=== PATIENT | female | born 1935 | race Two or more races ===

== ENCOUNTER 2018-02-24 11:18 | Inpatient (IN) | payer MEDICARE, OTHER ==
[~2018-02-24] VITALS: Ht 144.8 cm; Wt 54.9 kg
[2018-02-24 11:30] VITALS: BP 144/63
[2018-02-24] MEDS ORDERED: Vancomycin 1 GM in NS 275 ML IV ONE (11:30)
[2018-02-24] MEDS: Cefepime HCl 1 GM in NS 55 ML IV SCH ×2 (12:33→23:30)
[2018-02-24 12:59] LABS: ANION GAP 10 mmol/L (5-15); BLOOD UREA NITROGEN 46 mg/dL (7-18); CALCIUM 8.9 MG/DL (8.5-10.1); CARBON DIOXIDE 29 MMOL/L (21-32); CHLORIDE 95 MMOL/L (98-107); CREATININE 4.9 MG/DL (0.55-1.30); POTASSIUM 4.8 MMOL/L (3.5-5.1); SODIUM 134 MMOL/L (136-145)
[2018-02-24 13:02] LABS: BASOPHILS % (AUTO) 1.4 % (0.0-2.0); EOSINOPHILS % (AUTO) 0.7 % (0.0-3.0); HEMATOCRIT 33.4 % (37.0-47.0); LYMPHOCYTES % (AUTO) 17.7 % (20.0-45.0); MEAN CORPUSCULAR VOLUME 97 FL (80-99); NEUTROPHILS % (AUTO) 69.1 % (45.0-75.0); PLATELET COUNT 139 K/UL (150-450); RED BLOOD COUNT 3.43 M/UL (4.20-5.40); RED CELL DISTRIBUTION WIDTH 12.3 % (11.6-14.8)
[2018-02-24 13:11] LABS: ALANINE AMINOTRANSFERASE 22 U/L (12-78); ALBUMIN 3.5 G/DL (3.4-5.0); ALBUMIN/GLOBULIN RATIO 0.9 (1.0-2.7); ALKALINE PHOSPHATASE 103 U/L (46-116); ASPARTATE AMINO TRANSFERASE 34 U/L (15-37); BILIRUBIN,TOTAL 0.5 MG/DL (0.2-1.0); CKMB 1.3 NG/ML (0.0-3.6); CREATINE KINASE 337 U/L (26-308)
--- NOTE | 2018-02-24 13:19 | Emergency Room Report ---
History of Present Illness General Chief Complaint: Upper Respiratory Illness Source: Patient Present Illness HPI This patient complains of cough and congestion for the past 2 days. She states that yesterday she had a fever with shaking chills. She has had sputum production that is white in color. She denies abdominal pain. She has a history of end-stage renal disease and underwent dialysis yesterday. She denies shortness of breath. She has no other complaints. Allergies: Coded Allergies: No Known Allergies (Unverified , 02/24/18) Patient History Past Medical History: see triage record, DM, renal disease, dialysis Social History: Denies: smoking, alcohol use, drug use Reviewed Nursing Documentation: PMH: Agreed; PSxH: Agreed Nursing Documentation-PMH Past Medical History: No History, Except For Hx Cardiac Problems: Yes Hx Hypertension: No Hx Pacemaker: No Hx Asthma: No Hx COPD: No Hx Diabetes: Yes Hx Cancer: No Hx Gastrointestinal Problems: No Hx Dialysis: Yes - T, TH, Sat History Of Psychiatric Problem: No Hx Neurological Problems: No Hx Cerebrovascular Accident: No Hx Seizures: No Review of Systems All Other Systems: negative except mentioned in HPI Physical Exam Vital Signs Date Time Temp Pulse Resp B/P (MAP) Pulse Ox O2 Delivery O2 Flow Rate FiO2 02/24/18 11:23 98.7 69 16 144/63 88 Room Air 98.8 Sp02 EP Interpretation: reviewed, normal General Appearance: no apparent distress, alert, GCS 15, non-toxic Head: normocephalic, atraumatic Eyes: bilateral eye normal inspection, bilateral eye PERRL ENT: hearing grossly normal, normal pharynx, no angioedema, normal voice Neck: full range of motion, supple/symm/no masses Respiratory: chest non-tender, lungs clear, normal breath sounds, no respiratory distress, no retraction, no accessory muscle use, speaking full sentences Cardiovascular #1: regular rate, rhythm, no edema Gastrointestinal: normal bowel sounds, non tender, soft, non-distended, no guarding, no rebound Rectal: deferred Musculoskeletal: back normal, gait/station normal, normal range of motion, non- tender Neurologic: alert, oriented x3, responsive, motor strength/tone normal, sensory intact, speech normal Psychiatric: judgement/insight normal, memory normal, mood/affect normal, no suicidal/homicidal ideation Skin: normal color, no rash, warm/dry, well hydrated Medical Decision Making Diagnostic Impression: Primary Impression: Pneumonia ER Course This patient has pneumonia. She is well appearing overall without respiratory distress. However, the patient is 82 years old and has diabetes and end-stage renal disease. I felt this patient should be admitted overnight for close monitoring and IV antibiotics. She is admitted to the medical surgical floor. Laboratory Tests Test 02/24/18 12:10 White Blood Count 5.0 K/UL (4.8-10.8) Red Blood Count 3.43 M/UL (4.20-5.40) L Hemoglobin 11.0 G/DL (12.0-16.0) L Hematocrit 33.4 % (37.0-47.0) L Mean Corpuscular Volume 97 FL (80-99) Mean Corpuscular Hemoglobin 32.1 PG (27.0-31.0) H Mean Corpuscular Hemoglobin Concent 33.1 G/DL (32.0-36.0) Red Cell Distribution Width 12.3 % (11.6-14.8) Platelet Count 139 K/UL (150-450) L Mean Platelet Volume 8.4 FL (6.5-10.1) Neutrophils (%) (Auto) 69.1 % (45.0-75.0) Lymphocytes (%) (Auto) 17.7 % (20.0-45.0) L Monocytes (%) (Auto) 11.0 % (1.0-10.0) H Eosinophils (%) (Auto) 0.7 % (0.0-3.0) Basophils (%) (Auto) 1.4 % (0.0-2.0) Sodium Level 134 MMOL/L (136-145) L Potassium Level 4.8 MMOL/L (3.5-5.1) Chloride Level 95 MMOL/L (98-107) L Carbon Dioxide Level 29 MMOL/L (21-32) Anion Gap 10 mmol/L (5-15) Blood Urea Nitrogen 46 mg/dL (7-18) H Creatinine 4.9 MG/DL (0.55-1.30) H Estimate Glomerular Filtration Rate mL/min (>60) Glucose Level 262 MG/DL (74-106) H Lactic Acid Level 1.60 mmol/L (0.66-2.22) Calcium Level 8.9 MG/DL (8.5-10.1) Total Bilirubin 0.5 MG/DL (0.2-1.0) Aspartate Amino Transferase (AST) 34 U/L (15-37) Alanine Aminotransferase (ALT) 22 U/L (12-78) Alkaline Phosphatase 103 U/L (46-116) Total Creatine Kinase 337 U/L (26-308) H Creatine Kinase MB 1.3 NG/ML (0.0-3.6) Creatine Kinase MB Relative Index 0.3 Troponin I 0.026 ng/mL (0.000-0.056) Total Protein 7.4 G/DL (6.4-8.2) Albumin 3.5 G/DL (3.4-5.0) Globulin 3.9 g/dL Albumin/Globulin Ratio 0.9 (1.0-2.7) L EKG Diagnostic Results Rate: normal Rhythm: NSR ST Segments: no acute changes Rhythm Strip Diag. Results EP Interpretation: yes Rate: 60's Rhythm: NSR, no PVC's, no ectopy Last Vital Signs Date Time Temp Pulse Resp B/P (MAP) Pulse Ox O2 Delivery O2 Flow Rate FiO2 02/24/18 11:30 98.8 86 16 144/63 88 Room Air 98.8 Disposition: ADMITTED INPATIENT Condition: Stable Referrals: Servando Ortiz MD (PCP) JEANNIE ARAGON D.O. February 24, 2018 13:19
[2018-02-24] MEDS ORDERED: AMLODIPINE BESY10 MG ORAL (13:30)
[2018-02-24] MEDS ORDERED: LEVOTHYROXINE75 MCG ORAL (13:30)
[2018-02-24] MEDS ORDERED: cefTRIAXone 1 GM in NS 55 ML IVPB ONE (13:30)
[2018-02-24] MEDS ORDERED: BYSTOLIC2.5 MG ORAL (13:30)
[2018-02-24] MEDS ORDERED: FAMOTIDINE20 MG ORAL (13:30)
[2018-02-24] MEDS ORDERED: PLAVIX75 MG ORAL (13:35)
[2018-02-24] MEDS ORDERED: [UNRECOGNIZED DRUG - OTHER] ORAL (13:35)
[2018-02-24] MEDS ORDERED: FUROSEMIDE40 MG ORAL (13:35)
[2018-02-24] MEDS ORDERED: ZOCOR20 MG ORAL (13:35)
[2018-02-24] MEDS ORDERED: STARLIX60 MG ORAL (13:35)
[2018-02-24] MEDS ORDERED: AURYXIA210 MG PO (13:35)
[2018-02-24] MEDS ORDERED: LEVEMIR100 UNIT/1 SUBQ (13:35)
[2018-02-24 14:55] VITALS: BP 135/74
--- NOTE | 2018-02-24 15:51 | Diagnostic Imaging Report ---
Indication: Cough Technique: One view of the chest Comparison: none Findings: The lungs and pleural spaces are clear. Heart size is normal Impression: Negative
[2018-02-24] MEDS ORDERED: Ferric Subsulfate (Monsel's Soln) 30ml TOPIC ONE (16:15)
[2018-02-24] MEDS ORDERED: Heparin Sod 1000 units/ml 10ml IV PRN (17:00)
[2018-02-24] MEDS ORDERED: Azithromycin 250mg tab ORAL ONE (18:00)
[2018-02-24 20:00] VITALS: BP 127/54
[2018-02-24] MEDS: NovoLOG Insulin Flexpen SUBQ SCH (21:30)
[2018-02-24] MEDS: Albuterol/Ipratropium 3ml neb HHN SCH (22:30)
[2018-02-25] VITALS: BP_SYST 123; BP_SYST 132; BP_DIAS 51; BP_DIAS 71
[2018-02-25] MEDS: Guaifenesin/DM 10ml syrup ORAL PRN (00:51)
[2018-02-25] MEDS: Albuterol/Ipratropium 3ml neb HHN SCH ×4 (01:32→19:00)
--- NOTE | 2018-02-25 04:30 | Consultation ---
DATE OF CONSULTATION: 02/24/2018 CARDIOLOGY CONSULTATION CONSULTING PHYSICIAN: Servando Ortiz M.D. REQUESTING PHYSICIAN: Micheal Ron M.D. REASON FOR CONSULTATION: Shortness of breath. HISTORY OF PRESENT ILLNESS: This is a pleasant female, who lives in a convent with other "sisters" who has had several days of progressive shortness of breath. She is 82 years old and has end-stage renal disease, on hemodialysis. Yesterday, she had fevers and chills and productive cough began with sputum developing today. A dialysis session yesterday was uneventful other than the symptoms noted. PAST MEDICAL HISTORY: Hypertension, type 2 diabetes mellitus, end-stage renal disease, osteoarthritis, diabetic neuropathy, and degenerative disk disease. MEDICATIONS: Prior to admission, reviewed and reconciled. FAMILY HISTORY: Noncontributory. SOCIAL HISTORY: Negative for smoking, alcohol, or substance abuse. REVIEW OF SYSTEMS: An outpatient echocardiogram revealed normal ejection fraction, concentric hypertrophy, and mild degenerative valve disease. There is no history of seizure or stroke. Her dialysis is Tuesday, , and Tuesday and she never misses. She does take a diuretic on non-dialysis days. She produces a small amount of urine as such. There is no history of asthma. No other people in her convent have been ill with a respiratory infection that she is aware of. She has had some rhinorrhea, but no sinus tenderness. PHYSICAL EXAMINATION: GENERAL: The patient is well developed, well nourished, in mild distress. VITAL SIGNS: T-max 100 degrees, blood pressure 144/63, pulse 69, respiratory rate 16, and O2 saturation on room air 88%. HEENT: Conjunctivae are pink. Sclerae are anicteric. Mild rhinorrhea. Oropharynx clear. No injection. No thrush. NECK: Supple. No adenopathy. LUNGS: With coarse breath sounds and rhonchi. CARDIAC: Regular rhythm and rate. Normal S1 and S2 with a fourth heart sound. No murmur. ABDOMEN: Soft and nontender. No guarding or rebound. EXTREMITIES: Good pulses. No edema. There is a bruit palpable over the dialysis fistula. LABORATORY AND DIAGNOSTIC DATA: Chest x-ray with no acute process. White count is 5, hemoglobin 11. Sodium 134, potassium 4.8, BUN 46, and creatinine 4.9. Lactic acid 1.6. Troponin is 0.026. EKG with sinus rhythm and no acute abnormality. IMPRESSION: 1. Acute bronchitis and possible early pneumonia. 2. Hypoxia. 3. Chronic diastolic congestive heart failure. 4. End-stage renal disease. 5. Hypertensive heart disease. PLAN: 1. Antitussives. 2. Bronchodilators. 3. Sputum cultures. 4. Empiric antibiotics. 5. Continue dialysis and ultrafiltration per usual schedule. 6. Hold parameters for antihypertensives in place. 7. We will not resume diuretic therapy at this time. Servando Ortiz M.D. DR: CARLOS JOB#: [id number] CC:
[2018-02-25] MEDS: NovoLOG Insulin Flexpen SUBQ SCH ×4 (06:05→21:00)
[2018-02-25 09:00] VITALS: BP 105/63
[2018-02-25] MEDS ORDERED: Furosemide 40mg tab ORAL SCH (09:00)
[2018-02-25] MEDS: Heparin 5000 units/ml inj SUBQ SCH ×2 (09:35→21:00)
[2018-02-25] MEDS ORDERED: Tubing IV Secondary IV ONE (10:41)
[2018-02-25] MEDS ORDERED: NS 275ml ONE (10:41)
[2018-02-25 12:00] VITALS: BP 125/52
--- NOTE | 2018-02-25 12:33 | Diagnostic Imaging Report ---
EXAM: XR Chest, 2 Views CLINICAL HISTORY: ABN CHST TECHNIQUE: Frontal and lateral views of the chest. COMPARISON: No relevant prior studies available. FINDINGS: Lungs: Patchy interstitial reticular markings in bilateral lung bases. Lungs otherwise appear clear without focal consolidation. Pleural space: Unremarkable. The costophrenic angle are sharp. No visible pneumothorax. Heart: Unremarkable. No cardiomegaly. Mediastinum: Unremarkable. Bones/joints: Unremarkable. Soft tissues: Surgical clips are seen in bilateral axillary regions. IMPRESSION: Patchy interstitial reticular markings in bilateral lung bases. This may represent sub-segmental atelectasis versus infiltrate. No focal consolidation seen.
[2018-02-25] MEDS: cefTRIAXone 1gm/D5W 55ml IVPB SCH ×2 (14:10)
--- NOTE | 2018-02-25 16:15 | Consultation ---
DATE OF CONSULTATION: 02/24/2018 NEPHROLOGY CONSULTATION CONSULTING PHYSICIAN: Kris Johnson M.D. ATTENDING PHYSICIAN: Servando Ortiz M.D. REASON FOR CONSULTATION: This is a dialysis patient. HISTORY OF PRESENT ILLNESS: This is a pleasant 82-year-old female, who is on dialysis every Tuesday, , and Tuesday at [facility]. The patient has been on dialysis for about a year. Her attending drug counselor is Dr. Nemesio Felipe. She is admitted with suspected pneumonia. PAST MEDICAL HISTORY: 1. 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 2. Type 2 diabetes mellitus. 3. Hypertensive cardiovascular disease. 4. Hypothyroidism. 5. Peripheral vascular disease. HOME MEDICATIONS: 1. Amlodipine. 2. Plavix. 3. Famotidine. 4. Iron. 5. Lasix. 6. Levemir. 7. Synthroid. 8. Starlix. 9. Bystolic. 10. Zocor. 11. Renvela. ALLERGIES: No known drug allergies. FAMILY HISTORY: Unremarkable. SOCIAL HISTORY: She lives at home. HABITS: She is nonsmoker and nondrinker. There is no history of illicit drug abuse. REVIEW OF SYSTEMS: HEENT: Hearing and eyesight are normal. RESPIRATORY: She has a nonproductive cough. ENDOCRINE: She has type 2 diabetes mellitus and hypothyroidism. NEUROLOGICAL: No history of stroke, syncope, or Parkinson disease. PHYSICAL EXAMINATION: GENERAL: This is an elderly female who is in no acute distress. VITAL SIGNS: Blood pressure 132/51, pulse 63, respirations 18, and temperature 99.1. HEENT: The head is normocephalic and atraumatic. Pupils are equal, round, and reactive to light and accommodation consensually. NECK: Supple. Trachea midline. There was no lymphadenopathy or thyromegaly. LUNGS: Clear to auscultation and percussion. HEART: Regular rate and rhythm without rubs, murmurs, or gallops. ABDOMEN: Soft and nontender. Bowel sounds were active. EXTREMITIES: No clubbing, cyanosis, or edema. She has a left upper arm AV fistula with thrill and bruit. LABORATORY AND ANCILLARY DATA: CBC within normal limits. Serum chemistry, yesterday sodium 134, potassium 4.8, BUN 46, creatinine 4.9, glucose 262. Chest x-ray, clear lungs. ASSESSMENT: 1.Suspected pneumonia. 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 2. Type 2 diabetes mellitus. 3. Hypertensive cardiovascular disease. 4. Hypothyroidism. 5. Peripheral vascular disease. PLAN: 1. Continue IV antibiotics. 2. Hemodialysis Tuesday, , Tuesday. Thank you, Dr. Ortiz, for letting me participate in the care of this patient. Kris Johnson M.D. DR: Jesus Manuel JOB#: [id number] CC: HAMZAH
--- NOTE | 2018-02-25 16:30 | History and Physical Report ---
DATE OF ADMISSION: 02/24/2018 CHIEF COMPLAINT: Pneumonia. HISTORY OF PRESENT ILLNESS: The patient is a pleasant, 82-year-old female. She has a history of end-stage renal disease, on chronic hemodialysis; hypertension; diabetes; and congestive heart failure. She presented from home with complaints of two to three days of progressive shortness of breath, cough, and congestion. She was evaluated in the emergency room. There was concern about a possible early pneumonia. The patient has been pancultured. She has been started on broad-spectrum IV antibiotics. She is now admitted for further inpatient evaluation and care. PAST MEDICAL HISTORY: As above. PAST SURGICAL HISTORY: Includes history of an AV fistula. CURRENT MEDICATIONS: Reconciled and reviewed. ALLERGIES: None. SOCIAL HISTORY: There is no known history of tobacco, ethanol, or drugs. FAMILY HISTORY: None. REVIEW OF SYSTEMS: GENERAL: Positive fevers and chills, but no night sweats. HEENT: No headaches or visual changes. CARDIOPULMONARY: No chest pain. Positive shortness of breath, cough, and congestion. GASTROINTESTINAL: No nausea or vomiting. GENITOURINARY: No urgency or frequency. MUSCULOSKELETAL: No joint pain or swelling. NEUROLOGIC: No evidence of seizures. PHYSICAL EXAMINATION: VITAL SIGNS: Temperature was 100.8 degrees, pulse 76, respirations 18, and blood pressure 127/54. GENERAL: The patient is well developed, in no apparent distress. She is awake, alert, and oriented x4. HEENT: Pupils are equal, round, and reactive to light. . NECK: Supple. HEART: Regular rate and rhythm. LUNGS: Clear. ABDOMEN: Soft, nontender, and nondistended. EXTREMITIES: Without clubbing, cyanosis, or edema. LABORATORY DATA: Labs showed sodium 134, potassium 4.8, creatinine of 4.9. White count of 5, hemoglobin 11. X-RAYS: Chest x-ray performed was negative. ASSESSMENT: This is a pleasant female with a history of hypertension, diabetes, congestive heart failure, and end-stage renal disease, admitted with likely community-acquired pneumonia. 1. Community-acquired pneumonia. 2. Hypertension. 3. History of congestive heart failure. 4. Diabetes. 5. End-stage renal disease. PLAN: Broad-spectrum IV antibiotic therapy. Follow up pending cultures. Monitor chest x-ray. Continue hemodialysis. Cardiology to manage the patient's blood pressure and heart failure. Anticipate at least two to three-day hospitalization. Micheal Ron M.D. DR: Nickolas JOB#: [id number] CC:
[2018-02-25 21:00] VITALS: BP 140/60
[2018-02-26] VITALS: BP 126/90
[2018-02-26] MEDS: Albuterol/Ipratropium 3ml neb HHN SCH ×4 (00:40→20:52)
[2018-02-26 04:00] VITALS: BP 120/70
[2018-02-26] MEDS: NovoLOG Insulin Flexpen SUBQ SCH ×4 (06:14→21:18)
--- NOTE | 2018-02-26 08:14 | General Progress Note ---
Assessment/Plan Problem List: (1) Pneumonia ICD Codes: J18.9 - Pneumonia, unspecified organism SNOMED: 527832884 Status: stable, progressing Assessment/Plan cont iv abx resp rx monitor cxr follow up cultures Subjective ROS Limited/Unobtainable: No Constitutional: Reports: malaise, weakness HEENT: Reports: no symptoms Cardiovascular: Reports: no symptoms Respiratory: Reports: cough, sputum Gastrointestinal/Abdominal: Reports: no symptoms Genitourinary: Reports: no symptoms Neurologic/Psychiatric: Reports: no symptoms Endocrine: Reports: no symptoms Hematologic/Lymphatic: Reports: no symptoms Allergies: Coded Allergies: No Known Allergies (Unverified , 02/24/18) All Systems: reviewed and negative except above Subjective feeling better. decreased cough and congestion. no fever or chills. on resp. cxr with pna Objective Last 24 Hour Vital Signs Date Time Temp Pulse Resp B/P (MAP) Pulse Ox O2 Delivery O2 Flow Rate FiO2 02/26/18 08:03 74 20 99 Nasal Cannula 2.0 02/26/18 07:58 Nasal Cannula 02/26/18 07:58 93 Room Air 21 02/26/18 07:55 71 20 93 Room Air 21 02/26/18 04:00 97.8 67 20 120/70 99 97.8 02/26/18 04:00 Nasal Cannula 2.0 02/26/18 00:50 77 18 99 Nasal Cannula 2.0 02/26/18 00:40 67 20 96 Nasal Cannula 2.0 02/26/18 00:00 Nasal Cannula 2.0 02/26/18 00:00 98.0 77 20 126/90 98 98.0 02/25/18 21:31 Nasal Cannula 2.0 02/25/18 21:00 98.2 72 20 140/60 98 98.2 02/25/18 20:16 Nasal Cannula 2.0 02/25/18 20:16 Nasal Cannula 2.0 28 02/25/18 20:15 96 Nasal Cannula 2.0 28 02/25/18 20:15 Nasal Cannula 2.0 28 02/25/18 20:00 Nasal Cannula 2.0 02/25/18 18:30 Nasal Cannula 2.0 02/25/18 13:12 71 18 97 Nasal Cannula 2.0 02/25/18 13:02 69 20 94 Nasal Cannula 2.0 28 02/25/18 12:00 98.1 64 17 125/52 91 Nasal Cannula 2.0 98.1 02/25/18 09:00 98.1 74 17 105/63 98 Nasal Cannula 2.0 98.1 Intake and Output 02/25/18 02/26/18 19:00 07:00 Intake Total 295 ml 300 ml Balance 295 ml 300 ml Intake Oral 240 ml 300 ml IV Total 55 ml # Voids 1 Height (Feet): 4 Height (Inches): 9.00 Weight (Pounds): 110 General Appearance: WD/WN, alert Neck: supple Cardiovascular: regular rhythm Respiratory/Chest: rhonchi - bilaterally Abdomen: normal bowel sounds, non tender, soft, no organomegaly Edema: no edema noted Arm (L), no edema noted Arm (R), no edema noted Leg (L), no edema noted Leg (R), no edema noted Pedal (L), no edema noted Pedal (R), no edema noted Generalized 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
[2018-02-26] MEDS: Heparin 5000 units/ml inj SUBQ SCH ×2 (08:29→21:18)
[2018-02-26] MEDS: Guaifenesin/DM 10ml syrup ORAL PRN ×2 (08:39→15:32)
[2018-02-26 08:41] VITALS: BP 132/67
--- NOTE | 2018-02-26 11:55 | Nephrology Progress Note ---
Assessment/Plan Problem List: (1) Pneumonia (2) End stage chronic kidney disease (3) Hypertensive cardiovascular disease Plan HD TTS BP Under Control Subjective Subjective No new c/o Objective Objective Last 24 Hour Vital Signs Date Time Temp Pulse Resp B/P (MAP) Pulse Ox O2 Delivery O2 Flow Rate FiO2 02/26/18 08:41 97.3 67 18 132/67 99 97.3 02/26/18 08:26 69 132/67 02/26/18 08:16 73 20 99 Nasal Cannula 2.0 28 02/26/18 08:03 74 20 99 Nasal Cannula 2.0 28 02/26/18 07:58 Nasal Cannula 21 02/26/18 07:58 93 Room Air 02/26/18 07:55 71 20 93 Room Air 02/26/18 04:00 97.8 67 20 120/70 99 97.8 02/26/18 04:00 Nasal Cannula 2.0 02/26/18 00:50 77 18 99 Nasal Cannula 2.0 02/26/18 00:40 67 20 96 Nasal Cannula 2.0 02/26/18 00:00 Nasal Cannula 2.0 02/26/18 00:00 98.0 77 20 126/90 98 98.0 02/25/18 21:31 Nasal Cannula 2.0 02/25/18 21:00 98.2 72 20 140/60 98 98.2 02/25/18 20:16 Nasal Cannula 2.0 02/25/18 20:16 Nasal Cannula 2.0 28 02/25/18 20:15 96 Nasal Cannula 2.0 02/25/18 20:15 Nasal Cannula 2.0 28 02/25/18 20:00 Nasal Cannula 2.0 02/25/18 18:30 Nasal Cannula 2.0 02/25/18 13:12 71 18 97 Nasal Cannula 2.0 28 02/25/18 13:02 69 20 94 Nasal Cannula 2.0 28 02/25/18 12:00 98.1 64 17 125/52 91 Nasal Cannula 2.0 98.1 Intake and Output 02/25/18 02/26/18 19:00 07:00 Intake Total 295 ml 300 ml Balance 295 ml 300 ml Intake Oral 240 ml 300 ml IV Total 55 ml # Voids 1 Height (Feet): 4 Height (Inches): 9.00 Weight (Pounds): 110 Objective Cv RR Lungs CTA Abd SNT. BS + E No CCE ISABELLE AVF + Schuylerit Kris Johnson MD February 26, 2018 11:55
[2018-02-26 12:33] VITALS: BP 128/79
[2018-02-26] MEDS: cefTRIAXone 1gm/D5W 55ml IVPB SCH ×2 (13:37)
[2018-02-26 16:19] VITALS: BP 131/52
[2018-02-26 20:00] VITALS: BP 127/54
[2018-02-27] VITALS: BP 139/60
[2018-02-27] MEDS: Guaifenesin/DM 10ml syrup ORAL PRN ×2 (00:53→06:13)
[2018-02-27] MEDS: Albuterol/Ipratropium 3ml neb HHN SCH ×4 (01:01→19:54)
[2018-02-27 04:00] VITALS: BP 124/54
[2018-02-27] MEDS: NovoLOG Insulin Flexpen SUBQ SCH ×4 (06:06→21:23)
--- NOTE | 2018-02-27 07:56 | General Progress Note ---
Assessment/Plan Problem List: (1) Pneumonia ICD Codes: J18.9 - Pneumonia, unspecified organism SNOMED: 128578099 Status: stable, progressing Assessment/Plan cough rx adjusted cont iv abx resp rx monitor cxr monitor labs follow up cultures Subjective ROS Limited/Unobtainable: No Constitutional: Reports: malaise, weakness HEENT: Reports: no symptoms Cardiovascular: Reports: chest pain Respiratory: Reports: cough Gastrointestinal/Abdominal: Reports: no symptoms Genitourinary: Reports: no symptoms Neurologic/Psychiatric: Reports: no symptoms Endocrine: Reports: no symptoms Hematologic/Lymphatic: Reports: no symptoms Allergies: Coded Allergies: No Known Allergies (Unverified , 02/24/18) All Systems: reviewed and negative except above Subjective still with cough and congestion. no fever or chills. on resp. cxr with pna c/o sore throat and hoarseness Objective Last 24 Hour Vital Signs Date Time Temp Pulse Resp B/P (MAP) Pulse Ox O2 Delivery O2 Flow Rate FiO2 02/27/18 04:00 98.0 69 18 124/54 94 98.0 02/27/18 01:24 71 20 98 Nasal Cannula 2.0 02/27/18 01:10 63 20 95 Nasal Cannula 2.0 02/27/18 00:30 98 Nasal Cannula 2.0 02/27/18 00:00 97.8 71 18 139/60 94 97.8 02/26/18 21:06 67 20 99 Nasal Cannula 2.0 02/26/18 20:53 Nasal Cannula 2.0 28 02/26/18 20:53 96 Nasal Cannula 2.0 02/26/18 20:52 65 20 96 Nasal Cannula 2.0 28 02/26/18 20:00 Room Air 02/26/18 20:00 98.1 70 18 127/54 93 98.1 02/26/18 16:31 97.9 02/26/18 16:19 97.9 75 20 131/52 98 97.9 02/26/18 15:32 97.7 02/26/18 13:32 70 20 99 Nasal Cannula 2.0 28 02/26/18 13:24 73 20 96 Nasal Cannula 2.0 28 02/26/18 12:33 97.7 78 17 128/79 99 97.7 02/26/18 08:41 97.3 67 18 132/67 99 97.3 02/26/18 08:26 69 132/67 02/26/18 08:16 73 20 99 Nasal Cannula 2.0 02/26/18 08:03 74 20 99 Nasal Cannula 2.0 02/26/18 07:58 Nasal Cannula 21 02/26/18 07:58 93 Room Air 21 Intake and Output 02/26/18 02/27/18 19:00 07:00 Intake Total 895 ml 565 ml Balance 895 ml 565 ml Intake Oral 840 ml 565 ml IV Total 55 ml # Voids 4 Height (Feet): 4 Height (Inches): 9.00 Weight (Pounds): 110 Objective General Appearance: WD/WN, alert Neck: supple Cardiovascular: regular rhythm Respiratory/Chest: rhonchi - bilaterally Abdomen: normal bowel sounds, non tender, soft, no organomegaly Edema: no edema noted Arm (L), no edema noted Arm (R), no edema noted Leg (L), no edema noted Leg (R), no edema noted Pedal (L), no edema noted Pedal (R), no edema noted 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
[2018-02-27 08:00] VITALS: BP 127/61
[2018-02-27] MEDS ORDERED: Promethazine/Codeine 5ml UD ORAL PRN (08:00)
[2018-02-27 09:31] LABS: BASOPHILS % (AUTO) 2.4 % (0.0-2.0); EOSINOPHILS % (AUTO) 3.7 % (0.0-3.0); HEMATOCRIT 29.2 % (37.0-47.0); HEMOGLOBIN 9.8 G/DL (12.0-16.0); LYMPHOCYTES % (AUTO) 35.2 % (20.0-45.0); MEAN CORPUSCULAR VOLUME 97 FL (80-99); MONOCYTES % (AUTO) 13.5 % (1.0-10.0); NEUTROPHILS % (AUTO) 45.2 % (45.0-75.0); PLATELET COUNT 146 K/UL (150-450); RED BLOOD COUNT 3.02 M/UL (4.20-5.40); RED CELL DISTRIBUTION WIDTH 12.5 % (11.6-14.8); WHITE BLOOD COUNT 4.4 K/UL (4.8-10.8)
[2018-02-27 09:53] LABS: ALANINE AMINOTRANSFERASE 18 U/L (12-78); ALBUMIN 3.1 G/DL (3.4-5.0); ALBUMIN/GLOBULIN RATIO 0.8 (1.0-2.7); ALKALINE PHOSPHATASE 85 U/L (46-116); ANION GAP 14 mmol/L (5-15); ASPARTATE AMINO TRANSFERASE 29 U/L (15-37); BILIRUBIN,TOTAL 0.3 MG/DL (0.2-1.0); BLOOD UREA NITROGEN 40 mg/dL (7-18); CALCIUM 8.7 MG/DL (8.5-10.1); CARBON DIOXIDE 23 MMOL/L (21-32); CHLORIDE 100 MMOL/L (98-107); CREATININE 5.5 MG/DL (0.55-1.30); POTASSIUM 3.9 MMOL/L (3.5-5.1); SODIUM 137 MMOL/L (136-145)
[2018-02-27] MEDS: Heparin 5000 units/ml inj SUBQ SCH ×2 (10:43→21:24)
[2018-02-27 12:00] VITALS: BP 143/74
--- NOTE | 2018-02-27 13:03 | Nephrology Progress Note ---
Assessment/Plan Problem List: (1) Pneumonia (2) End stage chronic kidney disease (3) Hypertensive cardiovascular disease Plan HD TTS BP Under Control Subjective Subjective No new c/o Objective Objective Last 24 Hour Vital Signs Date Time Temp Pulse Resp B/P (MAP) Pulse Ox O2 Delivery O2 Flow Rate FiO2 02/27/18 12:00 98.0 77 20 143/74 98 98.0 02/27/18 10:10 67 130/66 02/27/18 08:00 97.6 70 20 127/61 98 97.6 02/27/18 08:00 Nasal Cannula 2.0 02/27/18 07:45 Nasal Cannula 02/27/18 07:45 96 Nasal Cannula 2.0 28 02/27/18 07:45 Nasal Cannula 02/27/18 07:45 Nasal Cannula 2.0 02/27/18 04:00 98.0 69 18 124/54 94 98.0 02/27/18 01:24 71 20 98 Nasal Cannula 2.0 28 02/27/18 01:10 63 20 95 Nasal Cannula 2.0 02/27/18 00:30 98 Nasal Cannula 2.0 02/27/18 00:00 97.8 71 18 139/60 94 97.8 02/26/18 21:06 67 20 99 Nasal Cannula 2.0 02/26/18 20:53 Nasal Cannula 2.0 02/26/18 20:53 96 Nasal Cannula 2.0 02/26/18 20:52 65 20 96 Nasal Cannula 2.0 02/26/18 20:00 Room Air 02/26/18 20:00 98.1 70 18 127/54 93 98.1 02/26/18 16:31 97.9 02/26/18 16:19 97.9 75 20 131/52 98 97.9 02/26/18 15:32 97.7 02/26/18 13:32 70 20 99 Nasal Cannula 2.0 02/26/18 13:24 73 20 96 Nasal Cannula 2.0 28 Intake and Output 02/26/18 02/27/18 19:00 07:00 Intake Total 895 ml 565 ml Balance 895 ml 565 ml Intake Oral 840 ml 565 ml IV Total 55 ml # Voids 4 Laboratory Tests 02/27/18 09:00: White Blood Count 4.4L, Red Blood Count 3.02L, Hemoglobin 9.8L, Hematocrit 29.2L , Mean Corpuscular Volume 97, Mean Corpuscular Hemoglobin 32.6H, Mean Corpuscular Hemoglobin Concent 33.8, Red Cell Distribution Width 12.5, Platelet Count 146L, Mean Platelet Volume 7.8, Neutrophils (%) (Auto) 45.2, Lymphocytes ( %) (Auto) 35.2, Monocytes (%) (Auto) 13.5H, Eosinophils (%) (Auto) 3.7H, Basophils (%) (Auto) 2.4H, Sodium Level 137, Potassium Level 3.9, Chloride Level 100, Carbon Dioxide Level 23, Anion Gap 14, Blood Urea Nitrogen 40H, Creatinine 5.5H, Estimat Glomerular Filtration Rate , Glucose Level 144H, Calcium Level 8.7, Total Bilirubin 0.3, Aspartate Amino Transf (AST/SGOT) 29, Alanine Aminotransferase (ALT/SGPT) 18, Alkaline Phosphatase 85, Total Protein 6.9, Albumin 3.1L, Globulin 3.8, Albumin/Globulin Ratio 0.8L Height (Feet): 4 Height (Inches): 9.00 Weight (Pounds): 110 Objective Cv RR Lungs CTA Abd SNT. BS + E No CCE ISABELLE AVF + Kris Edwards MD February 27, 2018 13:03
[2018-02-27] MEDS: cefTRIAXone 1gm/D5W 55ml IVPB SCH ×2 (14:22)
[2018-02-27 16:00] VITALS: BP 143/58
[2018-02-27 19:54] VITALS: BP 142/54
--- NOTE | 2018-02-27 23:19 | Cardiology Report ---
APPROVED REPORT EKG Measurement Heart [id number] SD [id number] Normal sinus rhythm Low voltage QRS Borderline ECG
[2018-02-28] MEDS: Albuterol/Ipratropium 3ml neb HHN SCH ×4 (01:13→20:07)
--- NOTE | 2018-02-28 03:30 | Progress Note ---
DATE: 02/25/2018 CARDIOLOGY PROGRESS NOTE Late entry, 02/25/2018. SUBJECTIVE: The patient is less short of breath today. She still has a cough with some sputum production. OBJECTIVE: VITAL SIGNS: Blood pressure 105/63, pulse 74, respirations 17, afebrile, and oxygen saturation 91% to 98% on two liters and 90% on room air. LUNGS: Few rhonchi. Regular rhythm and rate. CARDIAC: Normal S1, S2 with a fourth heart sound. ABDOMEN: Soft. No edema. LABORATORY DATA: Labs are pending. IMPRESSION: 1. Community-acquired pneumonia. 2. End-stage renal disease. 3. Hypertensive heart disease. 4. Chronic diastolic congestive heart failure. PLAN: 1. Antimicrobials. 2. Respiratory hygiene. 3. Repeat chest x-ray. 4. Hemodialysis with ultrafiltration. 5. Hold diuretic. 6. Titrate antihypertensive regimen. Servando Ortiz M.D. DR: FEDERICA JOB#: [id number] CC:
--- NOTE | 2018-02-28 03:30 | Progress Note ---
DATE: 02/27/2018 SUBJECTIVE: The patient has less ,congestion still with cough. No fevers. Afebrile. OBJECTIVE: VITAL SIGNS: Blood pressure 124/54, pulse 69, and respirations 18. LUNGS: Few rhonchi. HEART: Regular rhythm and rate. Normal S1, S2. ABDOMEN: Soft. No edema. DIAGNOSTIC DATA: Chest x-ray reveals basilar infiltrates bilaterally. IMPRESSION: 1. Pneumonia. 2. Community-acquired pneumonia. 3. Upper respiratory infection. 4. Hypertensive heart disease. 5. End-stage renal disease. PLAN: 1. Continue intravenous antibiotics. 2. Bronchodilators. 3. Respiratory hygiene. 4. Hemodialysis with ultrafiltration, Tuesday, , and Tuesday. 5. Titrate antihypertensives. 6. No plan to resume furosemide at this time. Servando Ortiz M.D. DR: FEDERICA JOB#: [id number] CC:
[2018-02-28] MEDS: NovoLOG Insulin Flexpen SUBQ SCH ×4 (05:45→22:19)
[2018-02-28] MEDS ORDERED: Heparin Sod 1000 units/ml 10ml IV SCH (06:00)
--- NOTE | 2018-02-28 07:50 | General Progress Note ---
Assessment/Plan Problem List: (1) Pneumonia ICD Codes: J18.9 - Pneumonia, unspecified organism SNOMED: 869383131 Status: stable, progressing Assessment/Plan cough rx adjusted cont iv abx resp rx and o2 as needed monitor cxr monitor labs follow up cultures cont diabetes rx may need home o2 Subjective ROS Limited/Unobtainable: No Constitutional: Reports: malaise, weakness HEENT: Reports: no symptoms Cardiovascular: Reports: chest pain Respiratory: Reports: cough, sputum Gastrointestinal/Abdominal: Reports: no symptoms Genitourinary: Reports: no symptoms Neurologic/Psychiatric: Reports: no symptoms Endocrine: Reports: no symptoms Hematologic/Lymphatic: Reports: no symptoms Allergies: Coded Allergies: No Known Allergies (Unverified , 02/24/18) All Systems: reviewed and negative except above Subjective still with cough and congestion. no fever or chills. on resp. no new complaints. feeling a little better. Objective Last 24 Hour Vital Signs Date Time Temp Pulse Resp B/P (MAP) Pulse Ox O2 Delivery O2 Flow Rate FiO2 02/28/18 07:00 92 20 99 Room Air 2.0 02/28/18 06:51 89 18 96 Room Air 02/28/18 06:50 Room Air 02/28/18 06:50 96 Room Air 21 02/28/18 01:25 89 20 97 02/28/18 01:14 89 18 97 Nasal Cannula 2.0 02/27/18 20:04 77 20 96 Nasal Cannula 2.0 02/27/18 19:54 Nasal Cannula 2.0 02/27/18 19:54 97 Nasal Cannula 2.0 02/27/18 19:54 96.8 63 20 142/54 93 Room Air 96.8 02/27/18 19:54 86 16 97 Nasal Cannula 2.0 02/27/18 16:00 Nasal Cannula 2.0 02/27/18 16:00 98.1 73 20 143/58 98 98.1 02/27/18 13:54 76 20 Nasal Cannula 2.0 02/27/18 13:45 75 16 Nasal Cannula 2.0 02/27/18 12:00 Nasal Cannula 2.0 02/27/18 12:00 98.0 77 20 143/74 98 98.0 02/27/18 10:10 67 130/66 02/27/18 08:00 97.6 70 20 127/61 98 97.6 02/27/18 08:00 Nasal Cannula 2.0 02/27/18 07:45 Nasal Cannula 02/27/18 07:45 96 Nasal Cannula 2.0 28 02/27/18 07:45 Nasal Cannula 02/27/18 07:45 Nasal Cannula 2.0 28 Intake and Output 02/27/18 02/28/18 19:00 07:00 Intake Total 400 ml Balance 400 ml Intake Oral 400 ml # Voids 3 4 Laboratory Tests 02/27/18 09:00: White Blood Count 4.4L, Red Blood Count 3.02L, Hemoglobin 9.8L, Hematocrit 29.2L , Mean Corpuscular Volume 97, Mean Corpuscular Hemoglobin 32.6H, Mean Corpuscular Hemoglobin Concent 33.8, Red Cell Distribution Width 12.5, Platelet Count 146L, Mean Platelet Volume 7.8, Neutrophils (%) (Auto) 45.2, Lymphocytes ( %) (Auto) 35.2, Monocytes (%) (Auto) 13.5H, Eosinophils (%) (Auto) 3.7H, Basophils (%) (Auto) 2.4H, Sodium Level 137, Potassium Level 3.9, Chloride Level 100, Carbon Dioxide Level 23, Anion Gap 14, Blood Urea Nitrogen 40H, Creatinine 5.5H, Estimat Glomerular Filtration Rate , Glucose Level 144H, Calcium Level 8.7, Total Bilirubin 0.3, Aspartate Amino Transf (AST/SGOT) 29, Alanine Aminotransferase (ALT/SGPT) 18, Alkaline Phosphatase 85, Total Protein 6.9, Albumin 3.1L, Globulin 3.8, Albumin/Globulin Ratio 0.8L Height (Feet): 4 Height (Inches): 9.00 Weight (Pounds): 110 Objective General Appearance: WD/WN, alert Neck: supple Cardiovascular: regular rhythm Respiratory/Chest: rhonchi - bilaterally Abdomen: normal bowel sounds, non tender, soft, no organomegaly Edema: no edema noted Arm (L), no edema noted Arm (R), no edema noted Leg (L), no edema noted Leg (R), no edema noted Pedal (L), no edema noted Pedal (R), no edema noted 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
[2018-02-28 08:00] VITALS: BP 136/59
--- NOTE | 2018-02-28 09:09 | Nephrology Progress Note ---
Assessment/Plan Problem List: (1) Pneumonia (2) End stage chronic kidney disease (3) Hypertensive cardiovascular disease Plan HD TTS BP Under Control Subjective Subjective No new c/o Objective Objective Last 24 Hour Vital Signs Date Time Temp Pulse Resp B/P (MAP) Pulse Ox O2 Delivery O2 Flow Rate FiO2 02/28/18 08:00 97.3 74 22 136/59 91 97.3 02/28/18 07:00 92 20 99 Room Air 2.0 02/28/18 06:51 89 18 96 Room Air 02/28/18 06:50 Room Air 02/28/18 06:50 96 Room Air 02/28/18 01:25 89 20 97 02/28/18 01:14 89 18 97 Nasal Cannula 2.0 02/27/18 20:04 77 20 96 Nasal Cannula 2.0 02/27/18 19:54 Nasal Cannula 2.0 02/27/18 19:54 97 Nasal Cannula 2.0 02/27/18 19:54 96.8 63 20 142/54 93 Room Air 96.8 02/27/18 19:54 86 16 97 Nasal Cannula 2.0 02/27/18 16:00 Nasal Cannula 2.0 02/27/18 16:00 98.1 73 20 143/58 98 98.1 02/27/18 13:54 76 20 Nasal Cannula 2.0 02/27/18 13:45 75 16 Nasal Cannula 2.0 02/27/18 12:00 Nasal Cannula 2.0 02/27/18 12:00 98.0 77 20 143/74 98 98.0 02/27/18 10:10 67 130/66 Intake and Output 02/27/18 02/28/18 19:00 07:00 Intake Total 400 ml Balance 400 ml Intake Oral 400 ml # Voids 3 4 Height (Feet): 4 Height (Inches): 9.00 Weight (Pounds): 110 Objective Cv RR Lungs CTA Abd SNT. BS + E No CCE ISABELLE AVF + Kris Edwards MD February 28, 2018 09:09
[2018-02-28] MEDS: Heparin 5000 units/ml inj SUBQ SCH ×2 (10:00→21:00)
--- NOTE | 2018-02-28 11:33 | Diagnostic Imaging Report ---
Indication: Abnormal breath sounds Comparison: 02/25/2018 2 views of the chest obtained. Findings: Interstitial of the lung is quite prominent. The heart is enlarged. Bones are osteopenic. There are bilateral axillary surgical clips. IMPRESSION: Prominence of the interstitium nonspecific. Mild degree of interstitial edema not excluded. Correlate clinically
[2018-02-28 12:00] VITALS: BP 138/70
[2018-02-28 16:00] VITALS: BP 128/59
[2018-02-28] MEDS: cefTRIAXone 1gm/D5W 55ml IVPB SCH ×2 (16:58)
[2018-02-28 21:27] VITALS: BP 134/57
[2018-03-01] MEDS: Albuterol/Ipratropium 3ml neb HHN SCH ×3 (01:00→14:11)
[2018-03-01 03:57] VITALS: BP 139/62
[2018-03-01] MEDS: NovoLOG Insulin Flexpen SUBQ SCH ×3 (06:26→16:30)
--- NOTE | 2018-03-01 07:50 | General Progress Note ---
Assessment/Plan Problem List: (1) Pneumonia ICD Codes: J18.9 - Pneumonia, unspecified organism SNOMED: [id number] Status: stable, progressing Assessment/Plan stable cough rx resp rx dc planning on po abx Subjective ROS Limited/Unobtainable: No Constitutional: Reports: malaise, weakness HEENT: Reports: no symptoms Cardiovascular: Reports: no symptoms Respiratory: Reports: cough, sputum Gastrointestinal/Abdominal: Reports: no symptoms Genitourinary: Reports: no symptoms Neurologic/Psychiatric: Reports: no symptoms Endocrine: Reports: no symptoms Hematologic/Lymphatic: Reports: no symptoms Allergies: Coded Allergies: No Known Allergies (Unverified , 02/24/18) All Systems: reviewed and negative except above Subjective better today. decreased cough and congestion. no chest pain cxr with mild edema. off o2. Objective Last 24 Hour Vital Signs Date Time Temp Pulse Resp B/P (MAP) Pulse Ox O2 Delivery O2 Flow Rate FiO2 03/01/18 03:57 97.5 69 18 139/62 100 Nasal Cannula 2.0 97.5 03/01/18 01:18 Nasal Cannula 2.0 03/01/18 01:18 Nasal Cannula 2.0 02/28/18 23:40 Nasal Cannula 2.0 02/28/18 21:27 98.1 70 18 134/57 97 Nasal Cannula 98.1 02/28/18 20:40 Nasal Cannula 2.0 02/28/18 19:20 89 18 99 Nasal Cannula 2.0 02/28/18 19:10 72 18 Room Air 21 02/28/18 19:09 94 Room Air 21 02/28/18 19:09 Room Air 02/28/18 16:00 98.0 78 20 128/59 98 98.0 02/28/18 16:00 Nasal Cannula 2.0 02/28/18 13:52 90 20 99 Nasal Cannula 2.0 28 02/28/18 13:43 86 18 Room Air 21 02/28/18 12:00 98.0 71 20 138/70 98 98.0 02/28/18 12:00 Nasal Cannula 2.0 02/28/18 08:00 Room Air 02/28/18 08:00 97.3 74 22 136/59 91 97.3 Intake and Output 02/28/18 03/01/18 19:00 07:00 Intake Total 600 ml 275 ml Output Total 425 ml Balance 600 ml -150 ml Intake Oral 600 ml Other 275 ml Output Urine Total 425 ml # Voids 3 Height (Feet): 4 Height (Inches): 9.00 Weight (Pounds): 121 Objective General Appearance: WD/WN, alert Neck: supple Cardiovascular: regular rhythm Respiratory/Chest: rhonchi - bilaterally Abdomen: normal bowel sounds, non tender, soft, no organomegaly Edema: no edema noted Arm (L), no edema noted Arm (R), no edema noted Leg (L), no edema noted Leg (R), no edema noted Pedal (L), no edema noted Pedal (R), no edema noted 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
--- NOTE | 2018-03-01 08:30 | Progress Note ---
DATE: 02/28/2018 CARDIOLOGY PROGRESS NOTE SUBJECTIVE: She remains with congestion and sputum production, but improved. She still has shortness of breath with activity. She is scheduled for hemodialysis with ultrafiltration per usual schedule today. The patient is less hypoxic and not requiring as much oxygen. OBJECTIVE: VITAL SIGNS: Blood pressure 142/54, pulse 63, and respiratory rate 20. LUNGS: No nasal tenderness or sinus tenderness. Scattered rhonchi. HEART: Regular rhythm and rate. Normal S1 and S2. There is a fourth heart sound. ABDOMEN: Soft. EXTREMITIES: No edema. Palpable bruit over AV fistula. IMPRESSION: 1. Community-acquired pneumonia. 2. Possible component of sinusitis. 3. End-stage renal disease. 4. Acute on chronic diastolic congestive heart failure. 5. Hypertensive heart disease. 6. Resolving hypoxia. PLAN: Plan of care in place. We will consider discharge planning over the next 24 to 48 hours if continued progress noted. Servando Ortiz M.D. DR: ALLY JOB#: [id number] CC:
[2018-03-01 08:42] VITALS: BP 141/56
[2018-03-01] MEDS: Heparin 5000 units/ml inj SUBQ SCH ×2 (09:00→09:18)
[2018-03-01 12:00] VITALS: BP 132/62
[2018-03-01] MEDS ORDERED: cefTRIAXone 1 GM in D5W 110 ML IVPB SCH (14:00)
[2018-03-01] MEDS ORDERED: LEVAQUIN250 M1 ORAL ×2 (15:04→15:05)
[2018-03-01] MEDS ORDERED: PROMETHAZINE-P118 M1 PO (15:04)
[2018-03-01] MEDS ORDERED: PROMETHAZINE-C118 M1 ORAL (15:05)
[2018-03-01 16:00] VITALS: BP 135/68
--- NOTE | 2018-03-01 17:36 | Nephrology Progress Note ---
Assessment/Plan Problem List: (1) Pneumonia (2) End stage chronic kidney disease (3) Hypertensive cardiovascular disease Plan HD TTS BP Under Control Subjective Subjective No new c/o Objective Objective Last 24 Hour Vital Signs Date Time Temp Pulse Resp B/P (MAP) Pulse Ox O2 Delivery O2 Flow Rate FiO2 03/01/18 16:00 97.5 69 18 135/68 99 97.5 03/01/18 14:20 78 18 99 Nasal Cannula 2.0 28 03/01/18 14:11 73 18 Room Air 21 03/01/18 12:00 97.5 63 18 132/62 97 97.5 03/01/18 09:13 65 141/56 03/01/18 08:42 97.0 65 19 141/56 94 97.0 03/01/18 08:15 78 18 99 Nasal Cannula 2.0 28 03/01/18 08:05 96 Nasal Cannula 2.0 28 03/01/18 08:05 Nasal Cannula 2.0 28 03/01/18 08:05 80 16 96 Nasal Cannula 2.0 03/01/18 03:57 97.5 69 18 139/62 100 Nasal Cannula 2.0 97.5 03/01/18 01:18 Nasal Cannula 2.0 28 03/01/18 01:18 Nasal Cannula 2.0 28 02/28/18 23:40 Nasal Cannula 2.0 02/28/18 21:27 98.1 70 18 134/57 97 Nasal Cannula 98.1 02/28/18 20:40 Nasal Cannula 2.0 02/28/18 19:20 89 18 99 Nasal Cannula 2.0 02/28/18 19:10 72 18 Room Air 21 02/28/18 19:09 94 Room Air 21 02/28/18 19:09 Room Air Intake and Output 02/28/18 03/01/18 19:00 07:00 Intake Total 600 ml 275 ml Output Total 425 ml Balance 600 ml -150 ml Intake Oral 600 ml Other 275 ml Output Urine Total 425 ml # Voids 3 Height (Feet): 4 Height (Inches): 9.00 Weight (Pounds): 121 Objective Cv RR Lungs CTA Abd SNT. BS + E No CCE ISABELLE AVF + Schuylerit Kris Johnson MD March 01, 2018 17:36
[2018-03-01] MEDS ORDERED: Heparin Sod 1000 units/ml 10ml IV SCH (18:00)
--- NOTE | 2018-03-02 04:15 | Progress Note ---
DATE: 03/01/2018 CARDIOLOGY PROGRESS NOTE SUBJECTIVE: The patient feels better. Cough is minimal. No shortness of breath. She hemodialysis with ultrafiltration last night. OBJECTIVE: VITAL SIGNS: Blood pressure 132/62, pulse 63, respirations 18, afebrile, and room air oxygen saturation is 94% to 97%. HEENT: Oropharynx is clear. No sinus tenderness. LUNGS: Few rhonchi. HEART: Regular rhythm and rate. Normal S1 and S2. There is a fourth heart sound. ABDOMEN: Soft. EXTREMITIES: There is a bruit over the left upper extremity AV fistula. Extremities without edema. IMPRESSION: 1. Recovering pneumonia. 2. End-stage renal disease. 3. Hypertensive heart disease. 4. Chronic diastolic congestive heart failure. PLAN: 1. Complete oral antibiotics at home. 2. Continue outpatient hemodialysis with ultrafiltration. 3. furosemide. 4. Maintain current antihypertensive regimen. 5. Fluid restriction discussed. Servando Ortiz M.D. DR: Aurelia JOB#: [id number] CC:
--- NOTE | 2018-03-02 15:40 | Discharge Summary ---
Discharge Summary Discharge Summary _ DATE OF ADMISSION: 02/24/2018 DATE OF DISCHARGE: 03/01/2018 CONSULTANTS: Dr. Micheal Johnson BRIEF HOSPITAL COURSE: Patient is an 82-year-old female, with history of end-stage renal disease on hemodialyses; hypertension; diabetes and congestive heart failure. She presented from home with complaints of 2-3 days progressive shortness of breath , with cough and congestion. She was evaluated in the emergency room. There was concern of possible early pneumonia. She was pancultured and was started on broad-spectrum IV antibiotics. She was admitted for further inpatient evaluation and care. She was given antitussives and bronchodilators. She was continued on inpatient hemodialysis. She was given IV ceftriaxone. Sputum culture showed growth of Lisa with upper respiratory isabell. Blood culture did not isolate any growth. She was continued on amlodipine and by systolic for blood pressure control. Repeat chest x-ray showed basilar infiltrates bilaterally. Breathing was monitored. She was having less cough and was saturating well. She was cleared for discharge home to complete antibiotics at home. FINAL DIAGNOSES: Community-acquired pneumonia End-stage renal disease on hemodialysis Hypertensive heart disease Chronic diastolic congestive heart failure DISPOSITION: She was discharged home. DISCHARGE MEDICATIONS: Refer to Discharge Medication List. DISCHARGE INSTRUCTIONS: Follow up within a week. I have been assigned to dictate discharge summary on this account, and I was not involved in the patient's management. Marycarmen Yanez NP March 02, 2018 15:40
[2018-03-02] MEDS ORDERED: Heparin Sod 1000 units/ml 10ml IV ONE (17:45)
== END 2018-03-01 18:00 | disposition home or self-care (01) | DRG 193 ==
LOC: EMR 12:26 → 4W 13:53 → EDBEDREQ 14:14
PROC: 5A1D70Z Performance of Urinary Filtration, Intermittent, Less than 6 Hours Per Day (ICD-10-PCS; principal; 2018-02-25)
PROC: 5A1D70Z Performance of Urinary Filtration, Intermittent, Less than 6 Hours Per Day (ICD-10-PCS; 2018-02-27)
PROC: 5A1D70Z Performance of Urinary Filtration, Intermittent, Less than 6 Hours Per Day (ICD-10-PCS; 2018-02-28)
DX: J18.9 Pneumonia, unspecified organism (principal); N18.6 End stage renal disease; I50.32 Chronic diastolic (congestive) heart failure; I13.2 Hypertensive heart and chronic kidney disease with heart failure and with stage 5 chronic kidney disease, or end stage renal disease; Z99.2 Dependence on renal dialysis; E11.22 Type 2 diabetes mellitus with diabetic chronic kidney disease; M19.90 Unspecified osteoarthritis, unspecified site; G62.9 Polyneuropathy, unspecified; J20.9 Acute bronchitis, unspecified; R09.02 Hypoxemia; E03.9 Hypothyroidism, unspecified; Z79.02 Long term (current) use of antithrombotics/antiplatelets
CPT/HCPCS: 36415; 71045; 71046; 80053; 82550; 82553; 82962; 83605; 84484; 85025; 87040; 87070; 87081; 87205; 93005; 94640; 94664; 94760; 99285; J1815; J7620

== ENCOUNTER 2018-04-27 14:56 | Emergency (ER) | payer MEDICARE, OTHER ==
[~2018-04-27] VITALS: Ht 167.6 cm; Wt 69.9 kg
[~2018-04-27 14:56] MED LIST: AMLODIPINE BESY10 MG ORAL; AURYXIA210 MG PO; BYSTOLIC2.5 MG ORAL; FAMOTIDINE20 MG ORAL; FUROSEMIDE40 MG ORAL; LEVAQUIN250 M1 ORAL; LEVEMIR100 UNIT/1 SUBQ; LEVOTHYROXINE75 MCG ORAL; PLAVIX75 MG ORAL; PROMETHAZINE-C118 M1 ORAL; PROMETHAZINE-P118 M1 PO; STARLIX60 MG ORAL; ZOCOR20 MG ORAL; [UNRECOGNIZED DRUG - OTHER] ORAL
[2018-04-27 16:00] VITALS: BP 141/50
[2018-04-27 16:33] LABS: ANION GAP 12 mmol/L (5-15); BLOOD UREA NITROGEN 14 mg/dL (7-18); CALCIUM 8.9 MG/DL (8.5-10.1); CARBON DIOXIDE 30 MMOL/L (21-32); CHLORIDE 94 MMOL/L (98-107); CREATININE 2.7 MG/DL (0.55-1.30); POTASSIUM 4.1 MMOL/L (3.5-5.1); SODIUM 136 MMOL/L (136-145)
[2018-04-27 16:46] LABS: BASOPHILS % (AUTO) 1.1 % (0.0-2.0); EOSINOPHILS % (AUTO) 0.9 % (0.0-3.0); HEMATOCRIT 35.9 % (37.0-47.0); LYMPHOCYTES % (AUTO) 5.1 % (20.0-45.0); MEAN CORPUSCULAR VOLUME 101 FL (80-99); MONOCYTES % (AUTO) 8.2 % (1.0-10.0); NEUTROPHILS % (AUTO) 84.8 % (45.0-75.0); PLATELET COUNT 175 K/UL (150-450); RED BLOOD COUNT 3.56 M/UL (4.20-5.40); WHITE BLOOD COUNT 9.4 K/UL (4.8-10.8)
[2018-04-27 16:47] LABS: APPEARANCE,URINE CLEAR; BILIRUBIN, URINE NEGATIVE (NEGATIVE); COLOR,URINE PALE YELLOW; GLUCOSE, URINE (UA) 2+ (NEGATIVE); KETONES,URINE NEGATIVE (NEGATIVE); LEUKOCYTE ESTERASE ,URINE NEGATIVE (NEGATIVE); NITRITE,URINE NEGATIVE (NEGATIVE); PH,URINE 9 (4.5-8.0); PROTEIN,URINE 3+ (NEGATIVE); UROBILINOGEN,URINE NORMAL MG/DL (0.0-1.0)
[2018-04-27 16:48] LABS: ALANINE AMINOTRANSFERASE 20 U/L (12-78); ALBUMIN 3.8 G/DL (3.4-5.0); ALKALINE PHOSPHATASE 101 U/L (46-116); ASPARTATE AMINO TRANSFERASE 31 U/L (15-37); BILIRUBIN,TOTAL 0.6 MG/DL (0.2-1.0); CKMB 0.5 NG/ML (0.0-3.6); CREATINE KINASE 79 U/L (26-308)
--- NOTE | 2018-04-27 17:03 | Diagnostic Imaging Report ---
Indication: Chest pain Technique: One view of the chest Comparison: 02/28/2018 Findings: There is some atelectasis in the right infrahilar region and left lateral lung base. Central bronchial wall thickening is again demonstrated. The lungs and pleural spaces are otherwise clear. The pleural spaces are clear. The heart is upper limits of normal in size. There are left axillary surgical clips Impression: Bibasilar atelectasis Central bronchial wall thickening, probably chronic No definite acute process
--- NOTE | 2018-04-27 17:22 | Emergency Room Report ---
History of Present Illness General Chief Complaint: Chest Pain Source: Patient, Family Member Present Illness HPI The patient comes from her dialysis. She has a history of end-stage renal disease. She states that over the past 2 days she has developed a cough and congestion. She was diagnosed with pneumonia a couple weeks ago. She had cleared up. However, she states that her symptoms recurred over the past 2 days. She states that when she coughs she has pain in her chest from coughing so much. She denies fever or chills. She has no other complaints. Allergies: Coded Allergies: No Known Allergies (Unverified , 02/24/18) Patient History Past Medical History: see triage record, DM, HTN, renal disease, dialysis Social History: Denies: smoking, alcohol use, drug use Reviewed Nursing Documentation: PMH: Agreed; PSxH: Agreed Nursing Documentation-PMH Hx Cardiac Problems: Yes Hx Hypertension: Yes Hx Pacemaker: No Hx Asthma: No Hx COPD: No Hx Diabetes: Yes Hx Cancer: No Hx Gastrointestinal Problems: No Hx Dialysis: Yes - T, TH, Sat Hx Neurological Problems: No Hx Cerebrovascular Accident: No Hx Seizures: No Review of Systems All Other Systems: negative except mentioned in HPI Physical Exam Vital Signs Date Time Temp Pulse Resp B/P (MAP) Pulse Ox O2 Delivery O2 Flow Rate FiO2 04/27/18 15:01 99.9 81 14 128/66 83 Room Air 99.9 Sp02 EP Interpretation: reviewed, normal General Appearance: no apparent distress, alert, GCS 15, non-toxic Head: normocephalic, atraumatic Eyes: bilateral eye normal inspection, bilateral eye PERRL ENT: hearing grossly normal, normal pharynx, no angioedema, normal voice Neck: full range of motion, supple/symm/no masses Respiratory: chest non-tender, lungs clear, normal breath sounds, no respiratory distress, no retraction, no accessory muscle use, speaking full sentences Cardiovascular #1: regular rate, rhythm, no edema Gastrointestinal: normal bowel sounds, non tender, soft, non-distended, no guarding, no rebound Rectal: deferred Musculoskeletal: back normal, normal range of motion, non-tender Neurologic: alert, oriented x3, responsive, motor strength/tone normal, sensory intact, speech normal Psychiatric: judgement/insight normal, memory normal, mood/affect normal, no suicidal/homicidal ideation Skin: normal color, no rash, warm/dry, well hydrated Medical Decision Making Diagnostic Impression: Primary Impression: Respiratory infection ER Course This patient presents with cough and congestion. She states she is coughing heavily. Laboratory workup to include CBC, CMP and cardiac enzymes are unremarkable. The patient underwent chest x-ray and there is no obvious pneumonia. The patient does have a history of diabetes and is elderly, and given the development of the cough I felt that I should place this patient on a course of antibiotics as a precaution as she is likely immunocompromised at baseline. At this time however the patient is nontoxic and well-appearing and I do not feel that she needs to be admitted to the hospital. The patient is given close return precautions and follow-up instructions. Laboratory Tests Test 04/27/18 15:45 04/27/18 16:25 04/27/18 16:55 Sodium Level 136 MMOL/L (136-145) Potassium Level 4.1 MMOL/L (3.5-5.1) Chloride Level 94 MMOL/L (98-107) L Carbon Dioxide Level 30 MMOL/L (21-32) Anion Gap 12 mmol/L (5-15) Blood Urea Nitrogen 14 mg/dL (7-18) Creatinine 2.7 MG/DL (0.55-1.30) H Estimate Glomerular Filtration Rate mL/min (>60) Glucose Level 163 MG/DL (74-106) H Calcium Level 8.9 MG/DL (8.5-10.1) Total Bilirubin 0.6 MG/DL (0.2-1.0) Aspartate Amino Transferase (AST) 31 U/L (15-37) Alanine Aminotransferase (ALT) 20 U/L (12-78) Alkaline Phosphatase 101 U/L (46-116) Total Creatine Kinase 79 U/L (26-308) Creatine Kinase MB 0.5 NG/ML (0.0-3.6) Creatine Kinase MB Relative Index 0.6 Troponin I 0.000 ng/mL (0.000-0.056) Total Protein 7.7 G/DL (6.4-8.2) Albumin 3.8 G/DL (3.4-5.0) Globulin 3.9 g/dL Albumin/Globulin Ratio 1.0 (1.0-2.7) White Blood Count 9.4 K/UL (4.8-10.8) Red Blood Count 3.56 M/UL (4.20-5.40) L Hemoglobin 12.0 G/DL (12.0-16.0) Hematocrit 35.9 % (37.0-47.0) L Mean Corpuscular Volume 101 FL (80-99) H Mean Corpuscular Hemoglobin 33.8 PG (27.0-31.0) H Mean Corpuscular Hemoglobin Concent 33.5 G/DL (32.0-36.0) Red Cell Distribution Width 13.0 % (11.6-14.8) Platelet Count 175 K/UL (150-450) Mean Platelet Volume 7.5 FL (6.5-10.1) Neutrophils (%) (Auto) 84.8 % (45.0-75.0) H Lymphocytes (%) (Auto) 5.1 % (20.0-45.0) L Monocytes (%) (Auto) 8.2 % (1.0-10.0) Eosinophils (%) (Auto) 0.9 % (0.0-3.0) Basophils (%) (Auto) 1.1 % (0.0-2.0) Urine Color Pale yellow Urine Appearance Clear Urine pH 9 (4.5-8.0) Urine Specific [place] 1.015 (1.005-1.035) Urine Protein 3+ (NEGATIVE) H Urine Glucose (UA) 2+ (NEGATIVE) H Urine Ketones Negative (NEGATIVE) Urine Occult Blood Negative (NEGATIVE) Urine Nitrite Negative (NEGATIVE) Urine Bilirubin Negative (NEGATIVE) Urine Urobilinogen Normal MG/DL (0.0-1.0) Urine Leukocyte Esterase Negative (NEGATIVE) Urine RBC 0-2 /HPF (0 - 2) Urine WBC 0-2 /HPF (0 - 2) Urine Squamous Epithelial Cells Occasional /LPF Urine Bacteria Occasional /HPF (NONE) Prothrombin Time Pending Prothrombin Time INR Pending PTT Pending EKG Diagnostic Results Rate: normal Rhythm: NSR ST Segments: no acute changes Rhythm Strip Diag. Results EP Interpretation: yes Rate: 80 Rhythm: NSR, no PVC's, no ectopy Chest X-Ray Diagnostic Results Chest X-Ray Diagnostic Results : Chest X-Ray Ordered: Yes # of Views/Limited/Complete: 1 View Indication: Other EP Interpretation: No Interpretation: no consolidation, no effusion, no pneumothorax, no acute cardiopulmonary disease Impression: No acute disease Electronically Signed by: Bella Last Vital Signs Date Time Temp Pulse Resp B/P (MAP) Pulse Ox O2 Delivery O2 Flow Rate FiO2 04/27/18 16:00 99.8 86 23 141/50 95 Room Air 99.8 Status: improved Disposition: HOME, SELF-CARE Condition: Improved Referrals: Servando Ortiz MD (PCP) Giana Wells DO Apr 27, 2018 17:22
[2018-04-27] MEDS ORDERED: ZITHROMAX250 MG ORAL (17:51)
[2018-04-27 18:14] VITALS: BP 148/59
--- NOTE | 2018-04-28 12:19 | Cardiology Report ---
APPROVED REPORT EKG Measurement Heart [id number] Normal sinus rhythm Nonspecific T wave abnormality Prolonged QT Abnormal ECG
== END 2018-04-27 18:14 | disposition home or self-care (01) ==
LOC: EMR 15:25
DX: J98.8 Other specified respiratory disorders (principal); E11.22 Type 2 diabetes mellitus with diabetic chronic kidney disease; I12.0 Hypertensive chronic kidney disease with stage 5 chronic kidney disease or end stage renal disease; N18.6 End stage renal disease; Z99.2 Dependence on renal dialysis
CPT/HCPCS: 36415; 71045; 80053; 81003; 82550; 82553; 84484; 85025; 85610; 85730; 93005; 99283

== ENCOUNTER 2020-09-02 16:32 | Emergency (ER) | payer MEDICARE, OTHER ==
[~2020-09-02] VITALS: Ht 157.5 cm; Wt 54.4 kg
[~2020-09-02 16:32] MED LIST changes: +ZITHROMAX250 MG ORAL
--- NOTE | 2020-09-02 16:35 | NUR ---
ED Nurse Note: Pt brought in by ambulance, co of weakness x1 day. [facility] she [facility]. She is also a dialysis pt, she had dialysis done earlier today. Her vital signs are stable as documented on room air, unlabored breathing, sitting comfortably. She is a/o and is maori speaking.
--- NOTE | 2020-09-02 16:39 | Emergency Room Report ---
History of Present Illness General Chief Complaint: Generalized Weakness Source: EMS Present Illness HPI Disclaimer: Please note that this report is being documented using DRAGON technology. This can lead to erroneous entry secondary to incorrect interpretation by the dictating instrument. HPI: 84-year-old female presents for evaluation of weakness. The patient has a history of hypertension, diabetes and ESRD on hemodialysis TRS. States she has been feeling weak for approximately 1 day. She went to dialysis today and was unable to transfer from a seated position which is not her baseline. She states she feels globally weak and denies unilateral weakness in any of the extremities. Otherwise she states she has been feeling well. Denies recent fever, chills, sore throat, nasal congestion, cough, chest pain, abdominal pain, nausea, vomiting, diarrhea. Still makes a small amount of urine. Denies hematuria or dysuria. Denies flank pain or tenderness. Denies fall or injury. Completed hemodialysis today. PMH: ESRD, hypertension, diabetes PSH: AV fistula Allergies: Reviewed Social Hx: Reviewed Allergies: Coded Allergies: No Known Allergies (Unverified , 02/24/18) COVID-19 Screening Contact w/high risk pt: No Experienced COVID-19 symptoms?: No COVID-19 Testing performed CROSSCUTTER: No Nursing Documentation-PMH Past Medical History: No History, Except For Hx Cardiac Problems: Yes Hx Hypertension: Yes Hx Pacemaker: No Hx Asthma: No Hx COPD: No Hx Diabetes: Yes Hx Cancer: No Hx Gastrointestinal Problems: No Hx Dialysis: Yes - T, TH, Sat Hx Neurological Problems: No Hx Cerebrovascular Accident: No Hx Seizures: No Review of Systems All Other Systems: negative except mentioned in HPI Physical Exam General: Awake and alert, no acute distress HEENT: NC/AT. EOMI. Cardiovascular: RRR. S1 and S2 normal. No murmur appreciated. Fistula palp able thrill in the right upper extremity Resp: Normal work of breathing. No cough, wheezing or crackles appreciated Abdomen: Abdomen is soft, nondistended. Nontender Skin: Intact. No abrasions, laceration or rash over the exposed skin MSK: Normal tone and bulk. Moving all extremities. No obvious deformity. Neuro: Awake and alert. Mentating appropriately. Medical Decision Making Diagnostic Impression: Primary Impression: UTI (urinary tract infection) Additional Impression: End stage chronic kidney disease ER Course 84-year-old female history of ESRD, hypertension, diabetes presents for generalized weakness 1 day duration. Is a stable vital signs. She completed hemodialysis prior to arrival. EKG shows normal sinus rhythm without obvious signs of ischemia. Chest x-ray shows bronchial thickening similar to prior x- rays. No focal consolidation. Blood work shows no white count, elevated BUN/creatinine consistent with end-stage renal disease though not significantly elevated as the patient recently received hemodialysis. Peptide is also elevated though again patient received hemodialysis prior to arrival. Urinalysis concerning for acute urinary tract infection. The patient was treated with Rocephin in the ED and feeling well. Discussed admission with the patient however she declined. She states that her sister is coming to take her home and she does not want to spend the night in the hospital. States she is feeling well now and will take the antibiotics and return if her weakness returns. Patient is alert and appropriate and capable of making her own decisions. I did tell her that she should return with new or worsening symptoms to which she agrees. Her sister was coming to take her home. Laboratory Tests Test 09/02/20 16:45 09/02/20 16:50 09/02/20 17:50 POC Whole Blood Glucose Pending White Blood Count 5.3 K/UL (4.8-10.8) Red Blood Count 3.74 M/UL (4.20-5.40) L Hemoglobin 12.6 G/DL (12.0-16.0) Hematocrit 36.0 % (37.0-47.0) L Mean Corpuscular Volume 96 FL (80-99) Mean Corpuscular Hemoglobin 33.7 PG (27.0-31.0) H Mean Corpuscular Hemoglobin Concent 35.0 G/DL (32.0-36.0) Red Cell Distribution Width 12.8 % (11.6-14.8) Platelet Count 254 K/UL (150-450) Mean Platelet Volume 9.0 FL (6.5-10.1) Neutrophils (%) (Auto) 61.3 % (45.0-75.0) Lymphocytes (%) (Auto) 26.5 % (20.0-45.0) Monocytes (%) (Auto) 8.4 % (1.0-10.0) Eosinophils (%) (Auto) 2.7 % (0.0-3.0) Basophils (%) (Auto) 1.2 % (0.0-2.0) Sodium Level 136 MMOL/L (136-145) Potassium Level 3.9 MMOL/L (3.5-5.1) Chloride Level 95 MMOL/L (98-107) L Carbon Dioxide Level 33 MMOL/L (21-32) H Anion Gap 8 mmol/L (5-15) Blood Urea Nitrogen 20 mg/dL (7-18) H Creatinine 2.5 MG/DL (0.55-1.30) H Estimated Glomerular Filtration Rate 18.4 mL/min (>60) Glucose Level 259 MG/DL (74-106) H Calcium Level 8.6 MG/DL (8.5-10.1) Phosphorus Level 2.3 MG/DL (2.5-4.9) L Magnesium Level 2.1 MG/DL (1.8-2.4) Total Bilirubin 0.5 MG/DL (0.2-1.0) Aspartate Amino Transferase (AST) 49 U/L (15-37) H Alanine Aminotransferase (ALT) 26 U/L (12-78) Alkaline Phosphatase 179 U/L (46-116) H Troponin I 0.032 ng/mL (0.000-0.056) Pro-B-Type Natriuretic Peptide 97651 pg/mL (0-125) H Total Protein 7.1 G/DL (6.4-8.2) Albumin 3.2 G/DL (3.4-5.0) L Globulin 3.9 g/dL Albumin/Globulin Ratio 0.8 (1.0-2.7) L Lipase 388 U/L (73-393) Urine Color Pale yellow Urine Appearance Slightly cloudy Urine pH 8 (4.5-8.0) Urine Specific [place] 1.015 (1.005-1.035) Urine Protein 3+ (NEGATIVE) H Urine Glucose (UA) 4+ (NEGATIVE) H Urine Ketones Negative (NEGATIVE) Urine Blood 2+ (NEGATIVE) H Urine Nitrite Negative (NEGATIVE) Urine Bilirubin Negative (NEGATIVE) Urine Urobilinogen Normal MG/DL (0.0-1.0) Urine Leukocyte Esterase 2+ (NEGATIVE) H Urine RBC 2-4 /HPF (0 - 2) H Urine WBC 15-20 /HPF (0 - 2) H Urine Squamous Epithelial Cells Moderate /LPF (NONE/OCC) H Urine Amorphous Sediment Moderate /LPF (NONE) H Urine Bacteria Moderate /HPF (NONE) H EKG Diagnostic Results Troponin ordered: Yes When was troponin ordered?: Sep 02, 2020 EKG Time: 17:16 Rate: normal Rhythm: NSR ST Segments: no acute changes Other Impression Sinus rhythm, normal axis, normal intervals, no ST segment changes. Rhythm Strip Diag. Results Rhythm Strip Time: 17:16 EP Interpretation: yes Rate: 70s Rhythm: NSR, no PVC's, no ectopy Chest X-Ray Diagnostic Results Chest X-Ray Diagnostic Results : Chest X-Ray Ordered: Yes # of Views/Limited/Complete: 1 View Indication: Other - Weakness EP Interpretation: Yes Interpretation: no consolidation, no effusion, no pneumothorax, other - Bronchial wall thickening seen on prior x-rays Impression: No acute disease Electronically Signed by: Electronically signed by Dr. Sukhjinder Zaragoza MD Disposition: HOME, SELF-CARE Condition: Stable Scripts Cephalexin* (KEFLEX*) 500 Mg Capsule 500 MG ORAL EVERY 12 HOURS for 7 Days, #14 CAP 0 Refills Prov: Sukhjinder Zaragoza MD 09/02/20 Sukhjinder Zaragoza MD Sep 02, 2020 16:39
[2020-09-02] MEDS ORDERED: toprol XL PO (16:42)
[2020-09-02] MEDS ORDERED: megace PO (16:42)
[2020-09-02] MEDS ORDERED: ZOLOFT25 MG ORAL (16:42)
[2020-09-02] MEDS ORDERED: GABAPENTIN100 MG ORAL (16:42)
[2020-09-02] MEDS ORDERED: FENOFIBRATE54 MG ORAL (16:42)
[2020-09-02 17:00] VITALS: BP 136/80
--- NOTE | 2020-09-02 17:23 | NUR ---
ED Nurse Note: Spoke with [facility] from [facility] her number is [phone]. Updated on her on pt condition.
[2020-09-02 17:28] LABS: BASOPHILS % (AUTO) 1.2 % (0.0-2.0); EOSINOPHILS % (AUTO) 2.7 % (0.0-3.0); HEMOGLOBIN 12.6 G/DL (12.0-16.0); LYMPHOCYTES % (AUTO) 26.5 % (20.0-45.0); MEAN CORPUSCULAR VOLUME 96 FL (80-99); MONOCYTES % (AUTO) 8.4 % (1.0-10.0); NEUTROPHILS % (AUTO) 61.3 % (45.0-75.0); PLATELET COUNT 254 K/UL (150-450); RED BLOOD COUNT 3.74 M/UL (4.20-5.40); RED CELL DISTRIBUTION WIDTH 12.8 % (11.6-14.8); WHITE BLOOD COUNT 5.3 K/UL (4.8-10.8)
[2020-09-02 17:35] LABS: CALCIUM 8.6 MG/DL (8.5-10.1); CREATININE 2.5 MG/DL (0.55-1.30); POTASSIUM 3.9 MMOL/L (3.5-5.1)
[2020-09-02 17:46] LABS: ALBUMIN 3.2 G/DL (3.4-5.0); ALBUMIN/GLOBULIN RATIO 0.8 (1.0-2.7); BILIRUBIN,TOTAL 0.5 MG/DL (0.2-1.0)
[2020-09-02 18:03] LABS: PHOSPHORUS 2.3 MG/DL (2.5-4.9)
[2020-09-02] MEDS ORDERED: Acetaminophen 500mg (ES) tab ORAL ONE (18:15)
[2020-09-02 18:17] LABS: APPEARANCE,URINE SLIGHTLY CLOUDY; BILIRUBIN, URINE NEGATIVE (NEGATIVE); COLOR,URINE PALE YELLOW; GLUCOSE, URINE (UA) 4+ (NEGATIVE); KETONES,URINE NEGATIVE (NEGATIVE); LEUKOCYTE ESTERASE ,URINE 2+ (NEGATIVE); NITRITE,URINE NEGATIVE (NEGATIVE); PH,URINE 8 (4.5-8.0); PROTEIN,URINE 3+ (NEGATIVE); UROBILINOGEN,URINE NORMAL MG/DL (0.0-1.0)
[2020-09-02] MEDS ORDERED: cefTRIAXone 1 GM in NS 55 ML IVPB ONE (18:45)
--- NOTE | 2020-09-02 19:05 | NUR ---
HAND-OFF: Report given to ALFREDO Cadet.
[2020-09-02] MEDS ORDERED: CEPHALEXIN500 MG ORAL (19:46)
[2020-09-02 20:45] VITALS: BP 136/80
--- NOTE | 2020-09-03 13:30 | Diagnostic Imaging Report ---
Indication: Shortness of breath Technique: One view of the chest Comparison: 10/31/2019 Findings: The lungs and pleural space are clear. The heart size is normal. There is mild central bronchial wall thickening. There are bilateral axillary surgical clips. No significant interim change Impression: No acute process
--- NOTE | 2020-09-05 13:02 | Cardiology Report ---
APPROVED REPORT EKG Measurement Heart [id number] <Conclusion> Normal sinus rhythm Nonspecific ST and T wave abnormality Prolonged QT Abnormal ECG
== END 2020-09-02 20:45 | disposition home or self-care (01) ==
LOC: EDBD 16:32 → EMR 16:49
DX: N39.0 Urinary tract infection, site not specified (principal); E11.22 Type 2 diabetes mellitus with diabetic chronic kidney disease; I13.11 Hypertensive heart and chronic kidney disease without heart failure, with stage 5 chronic kidney disease, or end stage renal disease; N18.6 End stage renal disease; Z99.2 Dependence on renal dialysis; Z79.4 Long term (current) use of insulin
CPT/HCPCS: 36415; 71045; 80053; 81003; 82962; 83690; 83735; 83880; 84100; 84484; 85025; 87086; 93005; 96365; 99284; J0696